=== PATIENT | female | born 1995 | race Caucasian/White ===

== ENCOUNTER 2019-08-10 11:21 | Outpatient (RCR) | payer BC, SELFPAY ==
--- NOTE | 2019-08-10 14:29 | PC.NURSE ---
IN 1050 OUT 1120 HISTORY: Pt. delivered at [facility] at 39 weeks. had no complications after delivery. Mother had no complications after delivery. Infant is now 1 month old. Infant appears to be well cared for. Infant has been seen by ICP as scheduled. Infant last seen by ICP on 3 weeks. Mother reports: eagerly latching without difficulties or discomfort every 2-3 hours during the day and 3- 4 hours during the night. has loud clicking with suckling, infant is on and off during feeding with some coughing and spitting up. Mother states has freq episodes of gassiness after feedings. feeds from 5-10 minutes on one breast per feeding, with crying and fussiness, needing to be calmed after some feedings. Mother reports she never feels emtpy after feedings and is currently on AB TX for mastitis. Mother wishes: Resolve feeding issues. Currently at 6 wets per day and 8 yellow watery/seedy stools per day. weight: 8#2 Last Weight: 10#4 Pre feeding weight: Post feeding weight: Not done due to adequate weight gain. OBSERVATION: Mother is able to latch correctly using cross cradle. latches deeply nursing with long draws and freq swallowing noted. With in a minute of latch, clicking is noted. Infant begins to draw back and purse down on nipple. Within a few minutes infant releases latch with coughing and crying. Discussed heavy let down and over production of milk. Mother reports she does not feel empty when infant completes feeding. Suggested mother self express breast infant will feed on, to allow milk flow to release pressure and assisting to empty breast obtaining more hind milk. Mother will self express other breast to comfort and apply ice packs to both. Switching breast with next feeding. , repeating the same. Reviewed this may assist with slightly decreasing milk supply to help with heavy let down and over supply. Discussed possible cause for current mastitis of not emptying the breast completely after feedings. Demonstrated different holds of upright football and leaning back once is latched. Both may assist control heavy milk flow. PLAN: Mother will follow above feeding plan to assist with maintaining latch and assisting with milk flow and decrease milk supply. Mother will call with further questions or concerns. Follow up phone call scheduled for WednesdayAug 14.
--- NOTE | 2019-08-15 10:29 | PC.NURSE ---
Called pt. mother reports techniques to slow down milk flow are working well. She has no further questions/ concerns at this time.
== END 2019-09-28 11:09 | disposition home or self-care (01) ==
LOC: ANHOBOP 11:21
PROVIDERS: PCP Family Medicine; Visit Provider Obstetrics & Gynecology
DX: Z39.1 Encounter for care and examination of lactating mother (principal)
CPT/HCPCS: 99212; G0463

== ENCOUNTER 2019-09-22 11:27 | Outpatient (CLI) | payer BC, SELFPAY ==
[2019-09-22 11:57] LABS: Alanine Aminotransferase 18 U/L (4-35); Albumin Level 4.6 g/dL (3.5-5.1); Alkaline Phosphatase 106 U/L (38-126); Amylase 80 U/L (30-110); Aspartate Amino Transferase 26 U/L (14-36); Bilirubin,Total 0.7 mg/dL (0.2-1.3); Lipase 49 U/L (23-300)
== END 2019-09-22 11:28 | disposition home or self-care (01) ==
PROVIDERS: PCP Family Medicine; Visit Provider Surgery
DX: K80.20 Calculus of gallbladder without cholecystitis without obstruction (principal)
CPT/HCPCS: 36415; 80076; 82150; 83690

== ENCOUNTER 2019-09-25 03:27 | Emergency (ER) | payer BC, SELFPAY ==
[2019-09-25 03:36] VITALS: BP 114/63; PULSE 88; RESP 20; TEMP 36.9; O2SAT 100
[2019-09-25 03:54] LABS: Basophils Percent Auto 0.5 % (0.2-1.2); Eosinophils Absolute Auto 0.2 K/mm3 (0-0.3); Eosinophils Percent Auto 2.1 % (0-4.4); Hematocrit 42.9 % (37.0-47.0); Hemoglobin 14.5 g/dL (12.0-15.0); Immature Granulocyte Absolute 0.02 K/mm3 (0.00-0.031); Immature Granulocyte Percent A 0.2 % (0-0.5); Lymphocytes Absolute Auto 2.36 K/mm3 (0.9-3.2); Lymphocytes Percent Auto 27.9 % (18.3-44.2); Mean Corpuscular HGB Conc 33.8 g/dl (32-36); Mean Corpuscular Volume 88.8 fl (80-100); Mean Platelet Volume 12.1 fl (7.4-10.4); Monocytes Absolute Auto 0.6 K/mm3 (0.1-0.6); Monocytes Percent Auto 7.6 % (2.6-8.5); Neutrophils Absolute Auto 5.2 K/mm3 (1.3-6.7); Neutrophils Percent Auto 61.7 % (45.5-73.1); Platelet Count Result 259 k/mm3 (150-375); Red Blood Count 4.83 M/mm3 (4.2-5.4); Red Cell Distribution Width 12.9 % (11.5-14.5); White Blood Count 8.5 K/mm3 (4.5-10.0)
[2019-09-25 04:00] LABS: Alanine Aminotransferase 17 U/L (4-35); Albumin Level 4.7 g/dL (3.5-5.1); Alkaline Phosphatase 111 U/L (38-126); Aspartate Amino Transferase 27 U/L (14-36); Bilirubin,Total 0.9 mg/dL (0.2-1.3); Blood Urea Nitrogen 15 mg/dL (7-17); Calcium 9.4 mg/dL (8.4-10.2); Carbon Dioxide 24 mmol/L (22-30); Chloride 103 mmol/L (98-107); Estimated Glomerular Filt Rate > 60; Glucose 110 mg/dL (65-105); Lipase 85 U/L (23-300); Potassium 3.7 mmol/L (3.4-5.0); Sodium 138 mmol/L (137-145)
[2019-09-25 04:03] LABS: Add Urine Microscopic? YES; Appearance Urine Clear (Clear); Bilirubin Urine Negative (Negative); Blood Urine Negative (Negative); Color Urine Yellow (Yellow); Glucose Urine UA Negative (Negative); Ketones Urine Negative (Negative); Leukocyte Esterase Ur Negative LEU/UL (Negative); Mucus Urine Rare /lpf; Nitrate Urine Negative (Negative); Protein Urine Negative (Negative); RBC Urine 0-2 /hpf (0-2); Squamous Epithelial Cell Urine Few /hpf (Few); WBC Urine 0-3 /hpf
[2019-09-25] MEDS: ONDANSETRON INJ 4 MG/2 ML VIAL IV PUSH (04:14)
[2019-09-25] MEDS: KETOROLAC 30 MG/ML VIAL (*BKC) IV PUSH (04:16)
[2019-09-25] MEDS: DICYCLOMINE HCL INJ 20 MG/2 ML VIAL IM (04:17)
--- NOTE | 2019-09-25 05:26 | ED.ABDPAIN ---
HPI - Abdominal Pain General Chief Complaint: Abdominal Pain Stated Complaint: RUQ abd pain Time Seen by Provider: 09/25/19 03:45 Source: patient Mode of arrival: ambulatory Limitations: no limitations History of Present Illness HPI narrative: Patient is a 23-year-old female who presents to the emergency department with complaint of right upper quadrant abdominal pain. Patient reports onset of symptoms at approximately 230 this morning. Patient has known history of gallstones and is scheduled for laparoscopic cholecystectomy on 10/04/2019. Patient states she has been having pain every night for the past 3 nights despite only eating toast, crackers, chicken broth, and Jell-O. Patient reports nausea but denies any vomiting. She denies any fever. Patient initially had onset of abdominal pain symptoms a couple of months ago. MD elicited complaint: abdominal pain Pertinent past history: other (Gallstones, biliary colic) Onset (ago): hour(s) Pain Consistency: constant Location: RUQ Severity: similar to previous episodes Radiation: R flank and back Migration to: no migration Exacerbating factors: nothing Relieving factors: nothing Context: confirms history of similar episodes Associated symptoms: nausea Treatments prior to arrival: other (1500 mg acetaminophen) Related Data Home Medications Medication Instructions Recorded Confirmed PNV cmb#95-ferrous fumarate-FA 1 tablet PO DAILY 06/13/19 09/25/19 [] ergocalciferol (vitamin D2) 50,000 unit PO 2XW 06/13/19 09/25/19 [Vitamin D2] metformin 1,000 mg PO DAILY 06/13/19 09/25/19 Allergies Allergy/AdvReac Type Severity Reaction Status Date / Time No Known Allergies Allergy Verified 09/25/19 03:41 Review of Systems Review of Systems: All systems reviewed & are unremarkable except as noted in HPI and below PMFSH Past Medical History Medical History Anemia PCOS (polycystic ovarian syndrome) Surgical History Surgical History History of placement of ear tubes as a child History of tonsillectomy 2017 Social History Social History Smoking status: Never smoker Second hand tobacco smoke exposure: No Alcohol intake: never Substance use: never Gender identity (if verbalized by the patient): Female Spiritual care concerns: No Exam Const: General: cooperative, no acute distress and alert Nutritional Appearance: overweight Orientation/consciousness: patient oriented x3 Limitations: no limitations HENMT: Mouth: Yes lip normal and Yes moist mucous membranes Resp: Effort & Inspection: normal respiratory effort Auscultation: clear to auscultation bilaterally Cardio: Rate: regular rate Rhythm: regular rhythm GI: GI Palp: Yes Soft to palpation and Yes Tenderness to palpation present (GI) (Focal right upper quadrant) Auscultation: normal bowel sounds : General: Yes CVA tenderness on the right Skin: General skin exam: normal color Neuro: General: patient oriented x3 Cognition (Neuro): normal cognition Speech: normal speech Extrem: General: normal to inspection, full ROM and no clubbing, cyanosis or edema Psych: Mental Status: mental status grossly normal Affect: normal affect Attitude: cooperative Course Course Emergency Course: Patient with improvement after Toradol, Bentyl, and Zofran. Advised contacting her surgeon's office later this morning to update them on her ED visit and discuss any further treatment options. Patient is already scheduled for surgery and does not seem highly likely that date could be moved up, but advised she could check with her surgeon to see if that is an option. Patient is already adhering to a low-fat diet and advised to continue to the same. Will prescribe medications for symptomatic management. Vital Signs Vital signs: Vital Sign
[2019-09-25 05:46] VITALS: BP 123/60; PULSE 67; RESP 20; O2SAT 100
== END 2019-09-25 05:50 | disposition home or self-care (01) ==
PROVIDERS: Emergency Provider Emergency Medicine; PCP Family Medicine
DX: K80.50 Calculus of bile duct without cholangitis or cholecystitis without obstruction (principal); E28.2 Polycystic ovarian syndrome
CPT/HCPCS: 36415; 80053; 81001; 81025; 83690; 85025; 96372; 96374; 96375; 99284; J0500; J1885; J2405

== ENCOUNTER 2019-09-27 15:48 | Observation (INO) | payer BC, SELFPAY ==
[2019-09-19 11:28] VITALS: BMI 36.2
[2019-09-27] VITALS (10 sets, daily range): BP systolic 107–135; BP diastolic 52–73; PULSE 58–86; RESP 12–18; TEMP 36.5–36.9; O2SAT 99–100
--- NOTE | ~2019-09-27 | XR_ITS ---
EXAMINATION: XR ERCP DATE: 09/28/2019 13:44 INDICATION: Common bile duct sludge TECHNIQUE: 15 intraoperative fluoroscopic images obtained during endoscopic retrograde cholangiopancr eatography (ERCP) are submitted for review. Total fluoroscopic time was 161.1 seconds. COMPARISON: None. FINDINGS: Fluoroscopic images demonstrate an endoscope in the second portion of the duodenum. The com mon bile duct is mildly dilated. The pancreatic duct is normal in course and caliber. IMPRESSION: 1. Mild enlargement of the common bile duct. Please refer to the ERCP procedure note for additional d etails. Reviewed, dictated and finalized at location A. IMPRESSION: 1. Mild enlargement of the common bile duct. Please refer to the ERCP procedure note for additional details.
[2019-09-27] MEDS: LACTATED RINGERS 1,000 ML 30 ML IV CONT ×2 (09:30→12:30)
--- NOTE | 2019-09-27 10:24 | WPDANESEPPF ---
Anes - Initial Pre Proc Eval Procedure: Operation Date: 09/27/19 11:00 Proposed Procedures p Laparoscopic Cholecystectomy - Jabari Hickman MD Date/Time: 09/27/19 10:24 Surgeon: Jabari Hickman MD Pre Op Diagnosis: chronic cholecystitis with stones Patient Data Age: 23 Gender: F Height: 5 ft 5 in Weight: 93.2 kg Last Vital Signs Temp 36.9 C 09/27/19 09:15 Pulse 71 09/27/19 09:15 Resp 16 09/27/19 09:15 BP 108/61 09/27/19 09:15 Pulse Ox 100 09/27/19 09:15 Allergies Allergy/AdvReac Type Severity Reaction Status Date / Time No Known Allergies Allergy Verified 09/27/19 09:48 Home Medications Medication Instructions Recorded Confirmed Type PNV cmb#95-ferrous fumarate-FA 1 tablet PO DAILY 06/13/19 09/27/19 History [] ergocalciferol (vitamin D2) 50,000 unit PO 2XW 06/13/19 09/27/19 History [Vitamin D2] metformin 1,000 mg PO DAILY 06/13/19 09/27/19 History ondansetron 4 mg PO Q6H PRN #10 tablet 09/25/19 09/26/19 Rx dicyclomine 20 mg PO QID PRN 09/26/19 09/27/19 History Patient hx anesthesia problems: none Family hx anesthesia problems: none PMFSH Past Medical History Medical History Anemia Hx of migraines PCOS (polycystic ovarian syndrome) Surgical History Surgical History History of placement of ear tubes as a child History of tonsillectomy 2017 Family History Family History Grandparent Breast cancer Grandparent Breast cancer Mother Anxiety Depression Sibling Anxiety Depression Sibling Anxiety Father Depression Hypertension Diabetes mellitus Social History Social History Smoking status: Never smoker Second hand tobacco smoke exposure: No Alcohol intake: never Substance use: never Gender identity (if verbalized by the patient): Female Spiritual care concerns: No Anes - Eval Final PreProcedure Day of Procedure 09/27/19 10:24 Patient weight: overweight Heart: regular rate and rhythm Lungs: clear to auscultation Airway: Mallampati scale class II Neurological: alert and oriented Last oral intake: >/= 8 hours ASA classification: II Emergent: no Anesthetic plan: proceed Anesthesia type and monitoring: general ETT and standard monitoring Informed Consent: The patient's anesthetic plan and its attendant risks and benefits were discussed with the patient/family/POA. Questions were solicited and answers provided to the satisfaction of the patient/family/POA.
[2019-09-27] MEDS: SCOPOLAMINE 1.5 MG PATCH TRANSDERM (10:30)
--- NOTE | 2019-09-27 11:14 | WPDHPUPDATE1 ---
History and Physical Update Update Date/Time: 09/27/19 11:14 History and Physical has been reviewed, including an updated exam of the patient. There are NO changes in the patient's condition. Risks, benefits, and alternatives have been discussed and questions answered. Patient agrees to proceed with procedure.
[2019-09-27] MEDS: ceFAZolin 2 GM/D5W 50 ML 2 GM/50 ML BAG IVPB ×2 (11:25→18:39)
--- NOTE | 2019-09-27 11:30 | PM.PROC ---
Procedure Note - Detailed Date of procedure: 09/27/19 Pre-op diagnosis: chronic cholecystitis with stones Chronic cholecystitis, cholelithiasis Post-op diagnosis: same Procedure performed: Laparoscopic cholecystectomy Description of procedure: The patient was taken to surgery and induced into general anesthesia. The abdomen was prepped and draped. Trocars were placed in the usual fashion using 0.5% Marcaine with epinephrine and applied Medical optical trocars. A 5 millimeter camera was used. The gallbladder was tensely distended with some edema in the wall. The gallbladder wall had a yellowish hue. It was partially intrahepatic. The gallbladder was decompressed with a laparoscopic aspirator. The cholecystotomy was closed with a Vicryl endo-loop. The gallbladder was retracted anterosuperiorly. Traction was placed on the infundibulum. The cystic duct and cystic artery were dissected out very clearly. The gallbladder was dissected off the liver at its lower 3rd. Critical view was achieved. We securely clipped and divided the cystic duct and cystic artery. The gallbladder was then further retracted so that the peritoneal attachments to the liver could be divided. Once the gallbladder was freed entirely, it was placed in an Endo-Catch bag and retrieved through the 10 11 epigastric trocar site. The epigastric trocar was then replaced. We reviewed the right upper quadrant. It was irrigated and suctioned. All looked good with no evidence of bleeding or bile leakage. We evacuated CO2 and removed the trocar sleeves. The fascia at the epigastric trocar site was closed with 0 Vicryl suture. Skin wounds were closed with subcuticular 4 O Monocryl skin suture. The wounds were dressed with Exofin surgical adhesive. Patient was awakened and taken to recovery in good condition. Sponge and needle counts were correct x2. Anesthesia: GETA and local (0.5% Marcaine with epinephrine) Surgeon: Jabari Hickman MD [employer] Teacher: Elma KIRAN Estimated blood loss (mL): 5 Drains: No Packing: No Pathology: yes (Gallbladder) Complications: None Condition: stable Disposition: PACU Findings: Acute and chronic inflammation, gallstones noted. No biliary ductal dilatation, no liver abnormalities.
[2019-09-27] MEDS: BUPIVACAINE/EPINEPHRINE 0.5% 10 ML VIAL 20 ML INFILTRATE (11:57)
[2019-09-27 14:47] LABS: Alanine Aminotransferase 114 U/L (4-35); Albumin Level 4.1 g/dL (3.5-5.1); Alkaline Phosphatase 190 U/L (38-126); Aspartate Amino Transferase 131 U/L (14-36); Bilirubin Direct 3.1 mg/dL (0-0.3); Bilirubin,Total 5.8 mg/dL (0.2-1.3)
[2019-09-27 14:49] LABS: Alanine Aminotransferase 115 U/L (4-35); Albumin Level 4.1 g/dL (3.5-5.1); Alkaline Phosphatase 188 U/L (38-126); Aspartate Amino Transferase 130 U/L (14-36); Bilirubin,Total 5.8 mg/dL (0.2-1.3); Blood Urea Nitrogen 13 mg/dL (7-17); Carbon Dioxide 22 mmol/L (22-30); Chloride 107 mmol/L (98-107); Estimated CRCL calculation 95 ml/min; Estimated Glomerular Filt Rate > 60; Glucose 94 mg/dL (65-105); Potassium 3.9 mmol/L (3.4-5.0); Sodium 140 mmol/L (137-145)
--- NOTE | 2019-09-27 15:11 | SUR.PHASEII ---
[address] Hickman to inform him that pt looked jaundice and asked if he wanted labs repeated . Per Dr Hickman, order a CMP and LFT
--- NOTE | 2019-09-27 15:14 | SUR.PHASEII ---
[id number] Dr Hickman came and spoke to patient about her surgery and repeating labs
--- NOTE | 2019-09-27 15:16 | SUR.PHASEII ---
[address] Hickman of the new lab results and elevated bili level; Dr Hickman informed me that she will be admitted tonight
--- NOTE | 2019-09-27 16:00 | PC.NURSE ---
This patient, Stacy Esquivel, was admitted to [facility] Surg Room 326-01. Patient/family oriented to hospital policies and general routines including ID bracelet, bed and alarms, visiting hours, pain management, procedures, bathroom and other care routines, personal items, smoking policy, room service/diet, and visiting hours. Valuables list has been completed. Information on how to activate the Rapid Response Team has been discussed. Patient/Family are encouraged to report perceived risks to care and to ask questions if they do not understand what they are told or what they should do.
[2019-09-27] MEDS: LACTATED RINGERS 1,000 ML 80 ML IV CONT (17:28)
[2019-09-27] MEDS: ENOXAPARIN 40 MG/0.4 ML SYRINGE SUB-Q (20:45)
[2019-09-28] VITALS (10 sets, daily range): BP systolic 81–118; BP diastolic 39–69; PULSE 48–71; RESP 16–26; TEMP 36.2–36.8; O2SAT 97–100
[2019-09-28] MEDS: ceFAZolin 2 GM/D5W 50 ML 2 GM/50 ML BAG IVPB ×2 (04:30→15:06)
[2019-09-28 06:16] LABS: Hematocrit 36.7 % (37.0-47.0); Hemoglobin 12.3 g/dL (12.0-15.0); Mean Corpuscular HGB Conc 33.5 g/dl (32-36); Mean Corpuscular Hemoglobin 30.2 pg (26-34); Mean Corpuscular Volume 90.2 fl (80-100); Mean Platelet Volume 12.5 fl (7.4-10.4); Platelet Count Result 191 k/mm3 (150-375); Red Blood Count 4.07 M/mm3 (4.2-5.4); Red Cell Distribution Width 13.7 % (11.5-14.5); White Blood Count 9.7 K/mm3 (4.5-10.0)
[2019-09-28] MEDS: LACTATED RINGERS 1,000 ML 80 ML IV CONT ×2 (06:22→23:39)
[2019-09-28 06:32] LABS: Alanine Aminotransferase 102 U/L (4-35); Albumin Level 3.7 g/dL (3.5-5.1); Alkaline Phosphatase 168 U/L (38-126); Aspartate Amino Transferase 125 U/L (14-36); Bilirubin,Total 5.3 mg/dL (0.2-1.3); Blood Urea Nitrogen 14 mg/dL (7-17); Calcium 9.2 mg/dL (8.4-10.2); Carbon Dioxide 25 mmol/L (22-30); Chloride 107 mmol/L (98-107); Estimated CRCL calculation 95 ml/min; Estimated Glomerular Filt Rate > 60; Glucose 97 mg/dL (65-105); Potassium 3.7 mmol/L (3.4-5.0); Sodium 138 mmol/L (137-145)
--- NOTE | 2019-09-28 07:40 | PM.PNGS ---
Progress Note: A&P Assessment and Plan (1) Obstructive jaundice: Code(s): K83.1 - Obstruction of bile duct Status: Acute Assessment and Plan: bilirubin this morning has decreased from 5.8-5.3. Liver function tests are slightly lower as well. Further plans per Dr. Cortez. (2) Chronic cholecystitis with calculus: Code(s): K80.10 - Calculus of gallbladder with chronic cholecystitis without obstruction Status: Acute Assessment and Plan: Seems to be healing well after laparoscopic cholecystectomy yesterday. (3) Mother currently breast-feeding: Code(s): Z39.1 - Encounter for care and examination of lactating mother Status: Chronic (4) PCOS (polycystic ovarian syndrome): Code(s): E28.2 - Polycystic ovarian syndrome Status: Chronic Subjective Subjective Date/Time Seen: 09/28/19 07:40 No complaints this morning. Minimal abdominal pain status post lap choly yesterday. Review of Systems Review of Systems: All systems reviewed & are unremarkable except as noted in HPI and below Constitutional: Constitutional: Denies headache(s) ENT: Denies headache(s) Cardiovascular: Cardiovascular: Denies chest pain and Denies dyspnea Respiratory: Respiratory: Denies cough and Denies dyspnea Gastrointestinal: Gastrointestinal: Reports as per HPI Neurologic: Denies confusion and Denies headache(s) Psychiatric: Psychiatric: Denies confusion Exam Const: General: comfortable and no acute distress; No confusion Orientation/consciousness: patient oriented x3 and No confusion Resp: Effort & Inspection: normal respiratory effort Auscultation: clear to auscultation bilaterally Cardio: Rate: regular rate Rhythm: regular rhythm GI: Inspection: non-distended and incision ( All incisions healing well) GI Palp: Yes Soft to palpation, Yes Tenderness to palpation present (GI) ( appropriate postoperative tenderness), No Guarding due to palpation present (GI) and No Rebound tenderness present Auscultation: normal bowel sounds Neuro: General: patient oriented x3, no focal motor deficits and No confusion Extrem: General: no calf tenderness and no edema Psych: Affect: normal affect Insight: Good insight present (Psych) Judgement: Good judgement present (Psych) Objective Data Vital Signs Vital Signs: Vital Signs - 24 hr 09/27/19 09:15 09/27/19 12:29 09/27/19 12:40 Temperature 36.9 C 36.5 C Pulse Rate 71 86 71 Respiratory Rate 16 14 18 Blood Pressure 108/61 135/69 133/55 L Pulse Oximetry 100 100 100 09/27/19 12:55 09/27/19 13:10 09/27/19 13:25 Temperature Pulse Rate 72 66 62 Respiratory Rate 12 12 Blood Pressure 132/56 L 130/63 116/60 Pulse Oximetry 100 99 09/27/19 13:55 09/27/19 14:35 09/27/19 15:05 Temperature Pulse Rate 58 L 60 77 Respiratory Rate Blood Pressure 122/56 L 107/52 L 121/57 L Pulse Oximetry 09/27/19 15:35 09/28/19 06:00 Temperature 36.6 C Pulse Rate 84 60 Respiratory Rate 18 Blood Pressure 133/73 109/50 L Pulse Oximetry 100 Intake/Output Intake/Output: Intake & Output 09/25/19 09/26/19 09/27/19 09/28/19 23:59 23:59 23:59 23:59 Intake Total 400 1170 Output Total 900 Balance 400 270 Meds/Results Medications: Active Medications Generic Name Dose Route Start Last Admin Trade Name Freq PRN Reason Stop Dose Admin Hydrocodone Bitart/Acetaminophen 1 tab 09/27/19 15:48 09/27/19 21:56 Josephine 5-325 Mg PO 1 tab Q4H PRN Administration Pain Rated 4-6 Hydrocodone Bitart/Acetaminophen 1 tab 09/27/19 15:48 Josephine 7.5-325 Mg PO Q4H PRN Pain Rated 7-10 Dicyclomine HCl 20 mg 09/27/19 15:48 Bentyl Capsule PO QID PRN Spasms Lactated Ringer's 1,000 mls @ 80 mls/hr 09/27/19 15:48 09/28/19 06:22 Lr - Lactated Ringers Iv IV CONT 80 mls/hr .[id number] CRISTY Administration Cefazolin Sodium 2 gm in 50 mls @ 100 mls/hr 09/27/19 19:00 09/28/19 05:13
--- NOTE | 2019-09-28 09:54 | WPDANESPN ---
Anes - Prog Note Post-Op Date/Time: 09/28/19 09:54 Cardiovascular status: normal Respiratory status: normal Airway patency: baseline Mental status: baseline Post-Op hydration status: normal Vital Signs: Last Vital Signs Temp 36.6 C 09/28/19 06:00 Pulse 60 09/28/19 06:00 Resp 18 09/28/19 06:00 BP 109/50 L 09/28/19 06:00 Pulse Ox 100 09/28/19 06:00 I/O: Intake & Output 09/27/19 09/28/19 09/28/19 23:59 07:59 15:59 Intake Total 50 1170 Output Total 900 Balance 50 270 Laboratory Tests 09/28/19 05:58 09/28/19 05:58 09/27/19 09/27/19 09/27/19 09:23 14:19 14:19 WBC RBC Hgb Hct MCV MCH MCHC RDW Plt Count MPV Sodium 140 Potassium 3.9 Chloride 107 Carbon Dioxide 22 BUN 13 Creatinine 0.90 Estim Creat Clear Calc 95 Estimated GFR > 60 Glucose 94 Calcium 9.0 Total Bilirubin 5.8 H 5.8 H Direct Bilirubin 3.1 H AST 131 H 130 H ALT 114 H 115 H Alkaline Phosphatase 190 H 188 H Total Protein 7.0 7.0 Albumin 4.1 4.1 Blood Type O Positive Antibody Screen Negative 09/28/19 09/28/19 05:58 05:58 WBC 9.7 RBC 4.07 L Hgb 12.3 Hct 36.7 L MCV 90.2 MCH 30.2 MCHC 33.5 RDW 13.7 Plt Count 191 MPV 12.5 H Sodium 138 Potassium 3.7 Chloride 107 Carbon Dioxide 25 BUN 14 Creatinine 0.90 Estim Creat Clear Calc 95 Estimated GFR > 60 Glucose 97 Calcium 9.2 Total Bilirubin 5.3 H Direct Bilirubin AST 125 H ALT 102 H Alkaline Phosphatase 168 H Total Protein 6.0 L Albumin 3.7 Blood Type Antibody Screen Post-procedural complaints: none Patient Feedback: Patient satisfied with anesthetic care.
--- NOTE | 2019-09-28 10:28 | WPDGICN ---
Assessment and Plan Assessment and plan (1) Obstructive jaundice: Code(s): K83.1 - Obstruction of bile duct Status: Acute Assessment and Plan: will proceed with ERCP today and assess biliary duct, most likely she has choledocholithiasis, she already had lap mumtaz yesterday and noted dark urine day before surgery (2) Chronic cholecystitis with calculus: Code(s): K80.10 - Calculus of gallbladder with chronic cholecystitis without obstruction Status: Acute Assessment and Plan: s/p lap mumtaz, doing ok post-op (3) PCOS (polycystic ovarian syndrome): Code(s): E28.2 - Polycystic ovarian syndrome Status: Chronic (4) Mother currently breast-feeding: Code(s): Z39.1 - Encounter for care and examination of lactating mother Status: Chronic GI Consult Note Consult date/time: 09/28/19 10:28 Reason for consult: jaundice HPI: Stacy Esquivel is a 23 year old female who was evaluated by Dr Hickman because RUQ pain since July after she had her baby. Pain was intermittent worse after eating, ER visit with CT scan abdomen and pelvis without contrast which showed gallbladder sludge and/or cholelithiasis. Then had ultrasound of the RUQ showed multiple cholelithiais without gallbladder wall thickening or pericholecystic fluid. Normal common bile duct, labs were normal before surgery (09/24). Finally she had lap mumtaz yesterday without any complications, patient noted dark urine day before surgery and because she noted to be jaundice repeat blood work was ordered that showed bili 5, transaminases 150's. Only minimal abdominal soreness from surgery, no nausea or vomiting, no history of liver disease. She was kept in the hospital because anormal lft's and is npo. She has h/o PCOS. Review of Systems Constitutional: Constitutional: Denies headache(s) and Denies weakness Eyes: Eyes: Denies blurry vision ENT: Reports Normal hearing present, Denies headache(s) and Denies neck pain Cardiovascular: Cardiovascular: Denies chest pain and Denies dyspnea Respiratory: Respiratory: Denies dyspnea Gastrointestinal: Gastrointestinal: Reports no additional gastrointestinal complaints Genitourinary: Genitourinary: Denies dysuria Musculoskeletal: Musculoskeletal: Denies neck pain Integumentary/Breasts: Skin/Breast: Denies dry skin Neurologic: Reports Normal hearing present, Denies headache(s) and Denies weakness Psychiatric: Psychiatric: Denies anxiety Endocrine: Endocrine: Denies change in body appearance Hematologic/Lymphatic: Hematologic/Lymphatic: Denies easy bleeding Allergic/Immunologic: Allergic/Immunologic: Denies urticaria PMFSH Past Medical History Medical History Anemia Hx of migraines PCOS (polycystic ovarian syndrome) Surgical History Surgical History History of placement of ear tubes as a child History of tonsillectomy 2017 Family History Family History Grandparent Breast cancer Grandparent Breast cancer Mother Anxiety Depression Sibling Anxiety Depression Sibling Anxiety Father Depression Hypertension Diabetes mellitus Social History Social History Smoking status: Never smoker Second hand tobacco smoke exposure: No Alcohol intake: never Substance use: never Gender identity (if verbalized by the patient): Female Spiritual care concerns: No Agree to blood products: Yes Meds Home Medications and Allergies Home Medications Medication Instructions Recorded Confirmed Type PNV cmb#95-ferrous fumarate-FA 1 tablet PO DAILY 06/13/19 09/27/19 History [] ergocalciferol (vitamin D2) 50,000 unit PO 2XW 06/13/19 09/27/19 History [Vitamin D2] metformin 1,000 mg PO DAILY 06/13/19
[2019-09-28] MEDS: LACTATED RINGERS 1,000 ML 150 ML IV CONT (10:32)
--- NOTE | 2019-09-28 10:58 | WPDANESEPPF ---
Anes - Initial Pre Proc Eval Procedure: Operation Date: 09/27/19 11:00 Proposed Procedures p Laparoscopic Cholecystectomy - Jabari Hickman MD Operation Date: 09/28/19 11:30 Proposed Procedures p Endoscopic Retro Cholangiopancreatogram - Kian Garcia MD Date/Time: 09/28/19 10:58 Surgeon: Jabari Hickman MD Pre Op Diagnosis: Jaundice Patient Data Age: 23 Gender: F Height: 5 ft 5 in Weight: 93.2 kg Last Vital Signs Temp 97.8 F 09/28/19 06:00 Pulse 71 09/28/19 10:30 Resp 16 09/28/19 10:30 BP 102/67 09/28/19 10:30 Pulse Ox 100 09/28/19 10:30 Allergies Allergy/AdvReac Type Severity Reaction Status Date / Time No Known Allergies Allergy Verified 09/27/19 09:48 Home Medications Medication Instructions Recorded Confirmed Type PNV cmb#95-ferrous fumarate-FA 1 tablet PO DAILY 06/13/19 09/27/19 History [] ergocalciferol (vitamin D2) 50,000 unit PO 2XW 06/13/19 09/27/19 History [Vitamin D2] metformin 1,000 mg PO DAILY 06/13/19 09/27/19 History ondansetron 4 mg PO Q6H PRN #10 tablet 09/25/19 09/26/19 Rx dicyclomine 20 mg PO QID PRN 09/26/19 09/27/19 History hydrocodone-acetaminophen 1 - 2 tablet PO Q6H PRN #7 tablet 09/27/19 Rx ketorolac 10 mg PO Q6H 4 Days #16 tablet 09/27/19 Rx Laboratory Tests 09/27/19 09/27/19 09/28/19 14:19 14:19 05:58 WBC 9.7 K/mm3 K/mm3 (4.5-10.0) RBC 4.07 M/mm3 L M/mm3 (4.2-5.4) Hgb 12.3 g/dL g/dL (12.0-15.0) Hct 36.7 % L % (37.0-47.0) MCV 90.2 fl fl (80-100) MCH 30.2 pg pg (26-34) MCHC 33.5 g/dl g/dl (32-36) RDW 13.7 % % (11.5-14.5) Plt Count 191 k/mm3 k/mm3 (150-375) MPV 12.5 fl H fl (7.4-10.4) Sodium 140 mmol/L mmol/L (137-145) Potassium 3.9 mmol/L mmol/L (3.4-5.0) Chloride 107 mmol/L mmol/L (98-107) Carbon Dioxide 22 mmol/L mmol/L (22-30) BUN 13 mg/dL mg/dL (7-17) Creatinine 0.90 mg/dL mg/dL (0.7-1.0) Estim Creat Clear Calc 95 ml/min ml/min Estimated GFR > 60 (59 - ) Glucose 94 mg/dL mg/dL (65-105) Calcium 9.0 mg/dL mg/dL (8.4-10.2) Total Bilirubin 5.8 mg/dL H mg/dL 5.8 mg/dL H mg/dL (0.2-1.3) (0.2-1.3) Direct Bilirubin 3.1 mg/dL H mg/dL (0-0.3) AST 131 U/L H U/L 130 U/L H U/L (14-36) (14-36) ALT 114 U/L H U/L 115 U/L H U/L (4-35) (4-35) Alkaline Phosphatase 190 U/L H U/L 188 U/L H U/L (38-126) (38-126) Total Protein 7.0 g/dL g/dL 7.0 g/dL g/dL (6.3-8.2) (6.3-8.2) Albumin 4.1 g/dL g/dL 4.1 g/dL g/dL (3.5-5.1) (3.5-5.1) 09/28/19 05:58 WBC RBC Hgb Hct MCV MCH MCHC RDW Plt Count MPV Sodium 138 mmol/L mmol/L (137-145) Potassium 3.7 mmol/L mmol/L (3.4-5.0) Chloride 107 mmol/L mmol/L (98-107) Carbon Dioxide 25 mmol/L mmol/L (22-30) BUN 14 mg/dL mg/dL (7-17) Creatinine 0.90 mg/dL mg/dL (0.7-1.0) Estim Creat Clear Calc 95 ml/min ml/min Estimated GFR > 60 (59 - ) Glucose 97 mg/dL mg/dL (65-105) Calcium 9.2 mg/dL mg/dL (8.4-10.2) Total Bilirubin 5.3 mg/dL H mg/dL (0.2-1.3) Direct Bilirubin AST 125 U/L H U/L (14-36) ALT 102 U/L H U/L (4-35) Alkaline Phosphatase 168 U/L H U/L (38-126) Total Protein 6.0 g/dL L g/dL (6.3-8.2) Albumin 3.7 g/dL g/dL (3.5-5.1) Patient hx anesthesia problems: none Family hx anesthesia problems: none PMFSH Past Medical History Medical History Anemia Hx of migraines PCOS (polycystic ovarian syndrome) Surgical History Surgical History History of placement of ear tubes as a child History of tonsil
[2019-09-28] MEDS: INDOMETHACIN 50 MG SUPP.RECT RECTAL ×2 (13:11)
--- NOTE | 2019-09-28 14:06 | SUR.PHASEII ---
Pt. arrived to Endoscopy PACU at 1337. Oral airway in, respirations adequate. Pt. sedated. Abdomen soft and round, pulses intact. Continue to monitor vital signs. 1345: Pt. arousable, oral airway removed.
[2019-09-28] MEDS: MULTIVIT/MIN/PREN/FOL AC/IRON TABLET 1 TAB PO (15:05)
[2019-09-29 06:16] LABS: Hematocrit 34.5 % (37.0-47.0); Hemoglobin 11.5 g/dL (12.0-15.0); Mean Corpuscular HGB Conc 33.3 g/dl (32-36); Mean Corpuscular Hemoglobin 30.2 pg (26-34); Mean Corpuscular Volume 90.6 fl (80-100); Mean Platelet Volume 12.8 fl (7.4-10.4); Platelet Count Result 172 k/mm3 (150-375); Red Blood Count 3.81 M/mm3 (4.2-5.4); White Blood Count 7.4 K/mm3 (4.5-10.0)
[2019-09-29 06:19] LABS: Alanine Aminotransferase 102 U/L (4-35); Albumin Level 3.5 g/dL (3.5-5.1); Alkaline Phosphatase 160 U/L (38-126); Aspartate Amino Transferase 96 U/L (14-36); Bilirubin,Total 1.8 mg/dL (0.2-1.3); Blood Urea Nitrogen 10 mg/dL (7-17); Calcium 9.1 mg/dL (8.4-10.2); Carbon Dioxide 25 mmol/L (22-30); Chloride 108 mmol/L (98-107); Estimated CRCL calculation 107 ml/min; Estimated Glomerular Filt Rate > 60; Glucose 87 mg/dL (65-105); Lipase 59 U/L (23-300); Potassium 3.5 mmol/L (3.4-5.0); Sodium 138 mmol/L (137-145)
[2019-09-29 06:26] VITALS: BP 116/45; PULSE 55; RESP 16; TEMP 36.8; O2SAT 98
--- NOTE | 2019-09-29 07:15 | PM.DS ---
DS: Diagnosis Admitting Diagnosis Admitting Diagnosis: Calculus of gallbladder without cholecystitis without obstruction Discharge Diagnosis (1) Choledocholithiasis with obstruction: Code(s): K80.51 - Calculus of bile duct without cholangitis or cholecystitis with obstruction Status: Acute Assessment and Plan: Status post successful ERCP yesterday per Dr. Cortez. Bilirubin decreased to 1.8 this morning. (2) Chronic cholecystitis with calculus: Code(s): K80.10 - Calculus of gallbladder with chronic cholecystitis without obstruction Status: Acute Assessment and Plan: Laparoscopic cholecystectomy on 09/27/2019. Doing well postoperatively. (3) Mother currently breast-feeding: Code(s): Z39.1 - Encounter for care and examination of lactating mother Status: Chronic (4) PCOS (polycystic ovarian syndrome): Code(s): E28.2 - Polycystic ovarian syndrome Status: Chronic DS: Summary Time Spent with Patient Time attestation: Total time spent providing and/or coordinating discharge services: Patient is a 23-year-old woman with postprandial abdominal pain. Imaging showed gallstones. She was taken to surgery for laparoscopic cholecystectomy on 09/27/2019 for chronic cholecystitis. Two days before the surgery, the patient had liver function tests which were normal. However on the day of surgery, she was noted to have some degree of jaundice and also had a yellowish tint to for gallbladder at the surgical procedure. The laparoscopic cholecystectomy went well but liver function tests were checked postoperatively and showed an elevated bilirubin of over 5. The patient was kept in the hospital. Dr. Cortez was consulted. She will had ERCP on 09/28/2019. Stones and sludge were found. She had no significant abdominal pain or complications of either procedure. On 09/28 her bilirubin was nearly normal and LFTs were reduced as well. She was comfortable on oral analgesics, eating and doing well. She is discharged now on 09/28 in good condition. Exam Const: General: comfortable and no acute distress; No confusion Orientation/consciousness: patient oriented x3 and No confusion Resp: Effort & Inspection: normal respiratory effort Auscultation: clear to auscultation bilaterally Cardio: Rate: regular rate Rhythm: regular rhythm GI: Inspection: non-distended and incision (All trocar sites healing well) GI Palp: Yes Soft to palpation, Yes Tenderness to palpation present (GI) (Minimal incisional tenderness), No Guarding due to palpation present (GI) and No Rebound tenderness present Auscultation: normal bowel sounds Neuro: General: patient oriented x3, no focal motor deficits and No confusion Extrem: General: no calf tenderness and no edema Psych: Affect: normal affect Insight: Good insight present (Psych) Judgement: Good judgement present (Psych) DS: Data Data Completed and Pending Completed studies during hospitalization: Pending at discharge 09/27/19 11:55 Surgical [PTH] Routine Labs on day of discharge: Labs from last 24 hours 09/29/19 09/29/19 05:52 05:52 WBC 7.4 RBC 3.81 L Hgb 11.5 L Hct 34.5 L MCV 90.6 MCH 30.2 MCHC 33.3 RDW 14.0 Plt Count 172 MPV 12.8 H Sodium 138 Potassium 3.5 Chloride 108 H Carbon Dioxide 25 BUN 10 Creatinine 0.80 Estim Creat Clear Calc 107 Estimated GFR > 60 Glucose 87 Calcium 9.1 Total Bilirubin 1.8 H AST 96 H ALT 102 H Alkaline Phosphatase 160 H Total Protein 6.0 L Albumin 3.5 Lipase 59 Discharge Plan Discharge Attending physician on discharge: Jabari Hickman Consulting providers: Kian Garcia Discharging Clinician: Jabari Hickman Anticipated Discharge Date/Time: 09/29/19 07:21 Patient Disposition: Home, Self-Care Activity: may shower, no straining and as tolerated Diet: low fat Wound Care Instructions: incision ope
[2019-09-29] MEDS: MULTIVIT/MIN/PREN/FOL AC/IRON TABLET 1 TAB PO (09:02)
== END 2019-09-29 09:40 | disposition home or self-care (01) ==
LOC: ANH3MEDSUR 16:03
PROVIDERS: Internal Medicine Gastroenterology; Admitting Provider Surgery; PCP Family Medicine; Visit Provider Surgery
PROC: 0FT44ZZ Resection of Gallbladder, Percutaneous Endoscopic Approach (ICD-10-PCS; CPT 47562; principal; 2019-09-27 11:00)
PROC: (CPT 43260; principal; 2019-09-28 11:30)
DX: K80.12 Calculus of gallbladder with acute and chronic cholecystitis without obstruction (principal); K80.51 Calculus of bile duct without cholangitis or cholecystitis with obstruction; K31.9 Disease of stomach and duodenum, unspecified; Z39.1 Encounter for care and examination of lactating mother; E28.2 Polycystic ovarian syndrome; D64.9 Anemia, unspecified; E55.9 Vitamin D deficiency, unspecified
CPT/HCPCS: 47562; 43264; 36415; 74329; 80053; 80076; 82248; 83690; 85027; 86850; 86900; 86901; 88304; A9270; C1713; G0378; J0131; J0330; J0690; J1100; J1170; J1650; J2250; J2405; J2704; J2710; J3010; J7120

== ENCOUNTER 2020-10-16 11:35 | Outpatient (CLI) | payer BC, SELFPAY ==
--- NOTE | ~2020-10-16 | XR_ITS ---
EXAMINATION: XR knee LT 2V DATE: 10/16/2020 12:07 INDICATION: Left knee pain. TECHNIQUE: 2 views of left knee were obtained. COMPARISON: None. FINDINGS: Bone alignment is normal. No fracture. Joint spaces are well maintained. There is no knee j oint effusion. IMPRESSION: 1. Normal left knee. Reviewed, dictated and finalized at location A. IMPRESSION: 1. Normal left knee.
--- NOTE | ~2020-10-16 | XR_ITS ---
EXAMINATION: XR knee RT 2V DATE: 10/16/2020 12:07 INDICATION: Right knee pain. TECHNIQUE: 2 views of right knee were obtained. COMPARISON: None. FINDINGS: Bone alignment is normal. No fracture. Joint spaces are well maintained. There is no knee j oint effusion. IMPRESSION: 1. Normal right knee. Reviewed, dictated and finalized at location A. IMPRESSION: 1. Normal right knee.
== END 2020-10-16 11:36 | disposition home or self-care (01) ==
LOC: ANHIMG 11:43
PROVIDERS: PCP Family Medicine; Visit Provider Nurse Practitioner Family
DX: M25.569 Pain in unspecified knee (principal)
CPT/HCPCS: 73560

== ENCOUNTER 2021-05-16 09:54 | Outpatient (CLI) | payer BC, SELFPAY ==
--- NOTE | ~2021-05-16 | US_ITS ---
EXAMINATION: US thyroid EXAM DATE: 05/16/2021 10:15 INDICATION: Goiter. TECHNIQUE: Multiple grayscale and Doppler images of the thyroid were obtained (by a technologist who performed the scan) and subsequently reviewed. Individual nodules and recommendations may be reporte d in accordance with TI-RADS system as designated by the 2017 ACR White Paper TI-RADS committee. The re is no prior study for comparison. FINDINGS: The right thyroid lobe measures 6.1 x 1.4 x 1.4 cm, the left measuring 5.5 x 1.4 x 1.5 cm. There is h omogeneous thyroid echogenicity, expected amount of vascularity. Several small thyroid nodules. Largest thyroid nodule is in the right thyroid lobe inferior deep aspect measuring 8 x 5 x 7 mm, gricelda d (2 points), hypoechoic (2 points), wider than tall, smooth well defined margin, without echogenic f oci, category TR4 for this nodule. No follow-up is currently recommended for this category subcentime ter nodule. IMPRESSION: 1. Mild thyromegaly. 2. Small thyroid nodules likely benign. Return to clinical follow-up. Reviewed, dictated and finalized at location A.
== END 2021-05-16 09:55 ==
PROVIDERS: PCP Family Medicine; Visit Provider Internal Medicine Endocrinology, Diabetes & Metabolism
DX: E04.2 Nontoxic multinodular goiter (principal)
CPT/HCPCS: 76536

== ENCOUNTER 2021-10-06 10:04 | Emergency (ER) | payer BC, SELFPAY ==
--- NOTE | 2021-10-06 11:00 | ED.GENADULT ---
HPI - General Adult General Chief complaint: Ear Stated complaint: lt ear pain Time Seen by Provider: 10/06/21 11:22 Source: patient, RN notes reviewed and old records reviewed Mode of arrival: ambulatory Limitations: no limitations History of Present Illness HPI narrative: 25 year old female who presents to [facility] care with complaint of left ear pain since Wednesday p.m. Patient states she has had some clear light yellow drainage from her left ear and ringing of her ear denies any dizziness.She states no sore throat , cough or any nasal congestion or drainage. Patient denies any fevers chills or any sweats. She reports using some Getuimers ear drops. Onset (ago): day(s) (3) Treatments prior to arrival: other (swimmers ear gtts) Related Data Home Medications Medication Instructions Recorded Confirmed metformin 1,000 mg PO DAILY 06/13/19 10/06/21 spironolactone 25 mg tablet 25 mg PO DAILY 07/08/21 10/06/21 multivitamin [One A Day] 1 tablet PO DAILY 10/06/21 10/06/21 Allergies Allergy/AdvReac Type Severity Reaction Status Date / Time No Known Allergies Allergy Verified 10/06/21 11:29 Review of Systems Review of Systems: CONSTITUTIONAL: Denies fever, chills, or sweats. EYES: Denies visual changes, redness, or discharge. ENT: Denies rhinorrhea, congestion, sore throat, Left otalgia. CARDIOVASCULAR: Denies chest pain, palpitations, or edema. RESPIRATORY: Denies cough or dyspnea. GASTROINTESTINAL: Denies abdominal pain, nausea, vomiting, or diarrhea. GENITOURINARY: Denies dysuria or hematuria. SKIN: Denies rash or itching. MUSCULOSKELETAL: Denies back pain, joint pain, or myalgia. NEUROLOGIC: Denies headache, numbness, or weakness. PSYCHIATRIC: Positive history of anxiety or depression. 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 Dietary counseling and surveillance (12/20/15) Flu vaccine need Hx of migraines PCOS (polycystic ovarian syndrome) Routine physical examination Scabies Surgical History Surgical History History of laparoscopic cholecystectomy 09/27/2019 History of placement of ear tubes as a child History of tonsillectomy 2017 Family History Family History Grandparent Breast cancer Mother Anxiety Depression Heart disease Tobacco abuse Sibling Anxiety Depression Sibling Anxiety Father Depression Hypertension Diabetes mellitus Social History Social History Second hand tobacco smoke exposure: Yes Alcohol intake: current Alcohol use details: 2-3 per month Substance use: current Substance use type: marijuana Other substance usage details: gummies and vapes 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 There is no relevant family history pertinent to the presenting complaint Exam Narrative: GENERAL: Well-appearing, well-nourished, and in no acute distress. HEAD: Normocephalic, atraumatic. EYES: PERRLA and EOMI. ENT: Nares clear, no rhinorrhea or epistaxis. Mucous membranes moist.TM's normal with good light reflex, Left ear canal irritated with some excoriation no drainage noted. Throat pink with no lesions or exudates, tonsils absent. NECK: Supple.no lymphadenopathy CHEST: Clear to auscultation. No r
[2021-10-06 11:06] VITALS: BP 104/65; PULSE 70; RESP 18; TEMP 36.5; O2SAT 100
== END 2021-10-06 12:15 | disposition home or self-care (01) ==
PROVIDERS: Emergency Provider Registered Nurse; PCP Family Medicine
DX: H60.502 Unspecified acute noninfective otitis externa, left ear (principal); E28.2 Polycystic ovarian syndrome; F12.90 Cannabis use, unspecified, uncomplicated
CPT/HCPCS: 99213; G0463

== ENCOUNTER 2021-12-09 12:10 | Outpatient (CLI) | payer BC, SELFPAY ==
--- NOTE | ~2021-12-09 | MR_ITS ---
EXAMINATION: MR brain/brain stem wo/w con DATE: 12/09/2021 12:49 INDICATION: New daily persistent headache. TECHNIQUE: Magnetic resonance imaging (MRI) of the brain and brainstem was performed without and with 17 mL MultiHance intravenous contrast. COMPARISON: None. FINDINGS: There is a small focus of increased T2-weighted signal intensity in the right left frontal lobe deep white matter, which is normal as an isolated finding. There is no intracranial hemorrhage o r acute infarction. The ventricles are normal in size. The paranasal sinuses are clear. The orbits ar e normal. The mastoid air cells are normal. IMPRESSION: 1. Normal brain. Reviewed, dictated and finalized at location A. IMPRESSION: 1. Normal brain.
[2021-12-09 12:33] LABS: Estimated Glomerular Filt Rate > 60
== END 2021-12-09 12:11 ==
LOC: MICIMG 12:11
PROVIDERS: PCP Family Medicine; Visit Provider Physician Assistant Medical
DX: G44.52 New daily persistent headache (NDPH) (principal)
CPT/HCPCS: 70553; A9577

== ENCOUNTER 2022-01-29 12:46 | Outpatient (CLI) | payer BC, SELFPAY ==
--- NOTE | ~2022-01-29 | US_ITS ---
EXAMINATION: US transvaginal DATE: 01/29/2022 13:48 INDICATION: Left adnexal fullness. TECHNIQUE: Multiple transvaginal sonographic images of the pelvis were obtained. COMPARISON: None. FINDINGS: The uterus measures 8.8 x 4.0 x 4.9 cm. There is no free fluid in the pelvis. The endometrial complex measures 4 mm in thickness. The right ovary measures 3.8 x 2.1 x 2.2 cm. The left ovary measures 3.9 x 4.7 x 3.9 cm. There is a 4.0 cm cyst in left ovary. There is normal vascular flow in the ovaries. IMPRESSION: 1. 4.0 cm cyst in left ovary, likely a follicular cyst. Reviewed, dictated and finalized at location A.
== END 2022-01-29 12:47 ==
PROVIDERS: PCP Family Medicine; Visit Provider Nurse Practitioner
DX: R19.00 Intra-abdominal and pelvic swelling, mass and lump, unspecified site (principal); N83.202 Unspecified ovarian cyst, left side
CPT/HCPCS: 76830

== ENCOUNTER → 2022-03-17 08:33 | Outpatient (CLI) | payer BC, SELFPAY ==
--- NOTE | ~2022-03-17 | US_ITS ---
EXAMINATION: US transvaginal DATE: 03/17/2022 08:58 INDICATION: Left ovarian cyst TECHNIQUE: Multiple endovaginal sonographic images of the pelvis were obtained. COMPARISON: 01/29/2022 FINDINGS: The uterus measures 9.3 x 4.3 x 5.8 cm. The endometrial complex measures 5 mm. The right ov cassia measures 2.5 x 2.9 x 3.6 cm. The left ovary measures 3.1 x 3.3 x 3.8 cm and contains a 2.5 cm sim ple cyst, decreased in size since the comparison examination and considered normal in a reproductive age female. There is normal vascular flow in the ovaries. There is no free fluid in the pelvis. IMPRESSION: 1. Unremarkable pelvic ultrasound. Reviewed, dictated and finalized at location B.
== END ==
PROVIDERS: PCP Family Medicine; Visit Provider Obstetrics & Gynecology Gynecology
DX: N83.202 Unspecified ovarian cyst, left side (principal)
CPT/HCPCS: 76830

== ENCOUNTER 2022-07-13 11:33 | Emergency (ER) | payer BC, SELFPAY ==
--- NOTE | ~2022-07-13 | XR_ITS ---
EXAMINATION: XR ribs RT 2V w CXR 2V DATE: 07/13/2022 12:21 INDICATION: Right rib pain. TECHNIQUE: Frontal and lateral views of the chest and 3 views of the right ribs were obtained. COMPARISON: Chest 2 views 01/29/2014 FINDINGS: CHEST TWO VIEWS: There is no pneumonia, pleural effusion, pneumothorax or the heart size is normal. S urgical clips in the right upper quadrant are likely from cholecystectomy. RIGHT RIBS: There is no rib fracture. IMPRESSION: 1. No rib fracture. Reviewed, dictated and finalized at location A. 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 No rib fracture.
[2022-07-13 11:36] VITALS: BP 118/74; PULSE 64; RESP 16; TEMP 36.6; O2SAT 100
--- NOTE | 2022-07-13 14:44 | ED.GENADULT ---
HPI - General Adult General Chief complaint: Wound/Laceration Stated complaint: right rib pain Time Seen by Provider: 07/13/22 13:42 Source: patient and RN notes reviewed Mode of arrival: ambulatory Limitations: no limitations History of Present Illness HPI narrative: This is a 26 year old female who presents for evaluation of right rib pain . She states her pain started 1 week before dennise. Her pain is worse with coughing, laughing and movement. She denies any injury. She states last night she was trying to be intimate with her and her pain worsened. She denies fever, chills, nauea, vomiting, sob, leg swelling calf pain. She denies history of DVT or PE. She take indomethicin daily for migraine headaches. Related Data Home Medications Medication Instructions Recorded Confirmed metformin 1,000 mg tablet 1,000 mg PO DAILY 06/13/19 06/10/22 multivitamin 1 tablet PO DAILY 10/06/21 06/10/22 indomethacin 50 mg capsule 100 mg PO QHS 06/10/22 06/10/22 Allergies Allergy/AdvReac Type Severity Reaction Status Date / Time No Known Allergies Allergy Verified 07/13/22 13:41 Review of Systems Constitutional: Constitutional: Denies weakness Cardiovascular: Cardiovascular: Denies syncope, Denies rapid heart rate, Denies irregular heart rhythm, Denies leg edema and Denies dyspnea Respiratory: Respiratory: Denies chest congestion, Denies hemoptysis, Denies excessive phlegm production and Denies dyspnea Gastrointestinal: Gastrointestinal: Denies abdominal pain, Denies hematochezia, Denies diarrhea and Denies vomiting Genitourinary: Genitourinary: Denies hematuria and Denies dysuria Musculoskeletal: Musculoskeletal: Denies joint swelling, Denies loss of height and Denies muscle weakness Neurologic: Denies syncope, Denies focal weakness and Denies weakness PMFSH Past Medical History Medical History Acute dysfunction of both eustachian tubes Acute sinusitis, unspecified Anemia BMI 29.0-29.9,adult BMI 31.0-31.9,adult 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 Dietary counseling and surveillance (12/20/15) Flu vaccine need Hx of migraines PCOS (polycystic ovarian syndrome) Routine physical examination Scabies Surgical History Surgical History History of laparoscopic cholecystectomy 09/27/2019 History of placement of ear tubes as a child History of tonsillectomy 2017 Family History Family History Grandparent Breast cancer Mother Anxiety Depression Heart disease Tobacco abuse COPD (chronic obstructive pulmonary disease) Sibling Anxiety Depression Father Depression Hypertension Diabetes mellitus Thyroid activity decreased Amputation of leg Social History Social History Smoking status: Never smoker Second hand tobacco smoke exposure: Yes Alcohol intake: current Alcohol use details: 2-3 per month Substance use: current Substance use type: marijuana Other substance usage details: gummies and vapes Lack of Transportation: No Lack of Food: Never True Current Housing: I Have Housing Concerned About Future Housing: No Difficulty Paying Gas/Electric Bills: No Difficulty Paying for Meds: No Currently Unemployed: No Education: High School Diploma/GED Difficulty w/ Childcare or Family Care: No 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
[2022-07-13 14:48] LABS: Basophils Absolute Auto 0.1 K/mm3 (0.0-0.1); Basophils Percent Auto 1.1 % (0.2-1.2); Eosinophils Absolute Auto 0.1 K/mm3 (0-0.3); Eosinophils Percent Auto 2.1 % (0-4.4); Hematocrit 41.2 % (37.0-47.0); Hemoglobin 13.8 g/dL (12.0-15.0); Immature Granulocyte Absolute 0.01 K/mm3 (0.00-0.031); Immature Granulocyte Percent A 0.2 % (0-0.5); Lymphocytes Absolute Auto 1.59 K/mm3 (0.9-3.2); Lymphocytes Percent Auto 25.3 % (18.3-44.2); Mean Corpuscular HGB Conc 33.5 g/dl (32-36); Mean Corpuscular Hemoglobin 29.7 pg (26-34); Mean Corpuscular Volume 88.8 fl (80-100); Mean Platelet Volume 12.5 fl (7.4-10.4); Monocytes Absolute Auto 0.5 K/mm3 (0.1-0.6); Monocytes Percent Auto 7.8 % (2.6-8.5); Neutrophils Percent Auto 63.5 % (45.5-73.1); Platelet Count Result 230 k/mm3 (150-375); Red Blood Count 4.64 M/mm3 (4.2-5.4); Red Cell Distribution Width 12.5 % (11.5-14.5); White Blood Count 6.3 K/mm3 (4.5-10.0)
[2022-07-13 14:58] LABS: Alanine Aminotransferase 13 U/L (6-35); Albumin Level 4.5 g/dL (3.5-5.1); Alkaline Phosphatase 68 U/L (38-126); Anion Gap 9 mmol/L (8-16); Aspartate Amino Transferase 19 U/L (14-36); Bilirubin,Total 0.4 mg/dL (0.2-1.3); Blood Urea Nitrogen 15 mg/dL (7-17); Calcium 9.3 mg/dL (8.4-10.2); Carbon Dioxide 23 mmol/L (22-30); Chloride 108 mmol/L (98-107); Estimated CRCL calculation 145 ml/min; Estimated Glomerular Filt Rate > 60; Glucose 92 mg/dL (65-110); Potassium 4.1 mmol/L (3.4-5.0); Sodium 140 mmol/L (137-145)
[2022-07-13 15:01] LABS: INR 1.1; Prothrombin Time 13.7 Seconds (11.1-14.7)
[2022-07-13 15:02] LABS: Partial Thromboplastin Time 29.1 SECONDS (22.3-36.8)
[2022-07-13 15:18] LABS: D Dimer 0.31 ug/mL (<0.48)
== END 2022-07-13 16:05 | disposition home or self-care (01) ==
PROVIDERS: Emergency Provider General Practice; PCP Family Medicine
DX: R07.89 Other chest pain (principal); E28.2 Polycystic ovarian syndrome; Z79.84 Long term (current) use of oral hypoglycemic drugs; F12.90 Cannabis use, unspecified, uncomplicated
CPT/HCPCS: 36415; 71046; 71100; 80053; 85025; 85380; 85610; 85730; 99283